=== PATIENT | male | born 1950 | race Caucasian/White ===

== ENCOUNTER 2024-07-20 00:30 | Emergency (ER) | payer OTHER, SELFPAY ==
[2024-07-20 00:35] VITALS: BP 135/82
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
[2024-07-20 02:53] VITALS: BP 131/85
== END 2024-07-20 03:30 | disposition home or self-care (01) ==
LOC: EMR 00:30
PROVIDERS: EMERGENCY PHYSICIAN Student in an Organized Health Care Education/Training Program
DX: S09.90XA Unspecified injury of head, initial encounter (principal); F10.129 Alcohol abuse with intoxication, unspecified; S00.31XA Abrasion of nose, initial encounter; S00.81XA Abrasion of other part of head, initial encounter; R45.6 Violent behavior; R45.1 Restlessness and agitation; W18.30XA Fall on same level, unspecified, initial encounter; Y92.480 Sidewalk as the place of occurrence of the external cause; R03.0 Elevated blood-pressure reading, without diagnosis of hypertension; I67.82 Cerebral ischemia
CPT/HCPCS: 99291; 70450; 70486; 72125